=== PATIENT | male | born 1970 | race Caucasian/White ===

== ENCOUNTER → 2017-07-27 | Outpatient (CLI) | payer SELFPAY ==
[2014-01-15 11:50] VITALS: BP 147/75
--- NOTE | 2017-07-31 10:51 | CT ---
HISTORY: Screening exam. Patient reports intermittent tachycardia and chest pressure. Study: Cardiac calcium scoring. Technique: Multiple axial images of the chest were obtained on a [address] from the main pulmonary artery to the base of the heart. Noncontrast evaluation of the heart was performed fo r calcium scoring with prospective gating. Findings: A total coronary artery calcium score of 37 is observed which is between the 50th and 75th percentile for males between the ages of 45 and 49. This score implies definite, at least mild ather osclerotic plaque with mild or minimal coronary narrowings likely. LM: 1 LAD: 5 LCX: 11 RCA: 20 Extracardiac findings: No pathologically enlarged lymphadenopathy can be observed. No significant pericardial effusion can be identified. The visualized portions of the lung parenchyma are unremarkable. No lytic or blastic lesions can be identified within the visualized bony thorax. IMPRESSION: Total coronary artery calcium score of 37. Reported By:
== END ==
LOC: RAD 08:37
PROVIDERS: ATTEND Internal Medicine
DX: Z13.6 Encounter for screening for cardiovascular disorders (principal)

== ENCOUNTER 2018-08-01 16:41 | Observation (INO) ==
[2018-08-01] MEDS ORDERED: NS 1000 ML 1,000 ML IV ONE (16:50)
[2018-08-01] MEDS ORDERED: NS 1000 ML 1,000 ML ONE ×2 (17:22→17:23)
[2018-08-01] MEDS: NS 1000 ML 1,000 ML IV SCH (17:32)
[2018-08-01] MEDS ORDERED: GLUCOPHAGE ONE (17:37)
[2018-08-01] MEDS: GLUCOPHAGE PO SCH (17:41)
[2018-08-01 18:00] LABS: BASOPHILS % (AUTO) 0.8 % (0.2-1.0); EOSINOPHILS # (AUTO) 0.1 x10^3/uL (0.0-0.2); EOSINOPHILS % (AUTO) 1.2 % (0.9-2.9); HEMATOCRIT 44.6 % (42.0-54.0); HEMOGLOBIN 15.5 g/dL (13.5-18.0); LYMPHOCYTES # (AUTO) 2.6 X10^3/uL (1.3-2.9); LYMPHOCYTES % (AUTO) 43.1 % (21.0-51.0); MEAN CORPUSCULAR HEMOGLOBIN 29.6 pg (27.0-34.0); MEAN CORPUSCULAR HGB CONC 34.7 g/dL (33.0-35.0); MEAN CORPUSCULAR VOLUME 85.3 fL (80.0-100.0); MEAN PLATELET VOLUME 8.9 fL (7.4-11.0); MONOCYTES # (AUTO) 0.5 x10^3/uL (0.3-0.8); MONOCYTES % (AUTO) 7.8 % (0.0-13.0); NEUTROPHILS # (AUTO) 2.9 x10^3/uL (2.2-4.8); NEUTROPHILS % (AUTO) 47.1 % (42.0-75.0); PLATELET COUNT 208 X10^3/uL (150.0-450.0); RED BLOOD COUNT 5.22 X10^6/uL (4.7-6.0); RED CELL DISTRIBUTION WIDTH 12.9 % (11.6-16.5); WHITE BLOOD COUNT 6.1 X10^3/uL (3.6-10.0)
[2018-08-01 18:11] LABS: BILIRUBIN,URINE NEGATIVE (NEGATIVE); BLOOD/HEMOGLOBIN,URINE NEGATIVE (NEGATIVE); GLUCOSE, URINE 4+ (NEGATIVE); KETONES,URINE 2+ (NEGATIVE); LEUKOCYTE ESTERASE ,URINE NEGATIVE (NEGATIVE); NITRITES,URINE NEGATIVE (NEGATIVE); PROTEIN,URINE NEGATIVE (NEGATIVE); UROBILINOGEN,URINE NORMAL (NORMAL)
[2018-08-01 18:13] LABS: ALBUMIN 3.5 g/dL (3.4-5.0); ALKALINE PHOSPHATASE 89 Units/L (46-116); AMYLASE 22 Units/L (25-115); BLOOD UREA NITROGEN 13 mg/dL (7-18); CALCIUM 9.2 mg/dL (8.5-10.1); CARBON DIOXIDE 22.5 mmol/L (21-32); CHLORIDE 98 mmol/L (98-107); CREATININE 1.02 mg/dL (0.70-1.30); LIPASE 216 Units/L (73-393); SODIUM 133 mmol/L (136-145); TOTAL PROTEIN 7.2 g/dL (6.4-8.2); eGFR NON BLACK RACES > 60 (>60)
[2018-08-01 18:14] VITALS: BMI 29.6
[2018-08-01 18:15] LABS: APPEARANCE,URINE CLEAR (CLEAR); COLOR,URINE STRAW (YELLOW)
[2018-08-01 18:16] LABS: SERUM ACETONE NEGATIVE (NEGATIVE)
[2018-08-01 18:37] LABS: ALANINE AMINOTRANSFERASE 80 Units/L (12-78); ASPARTATE AMINO TRANSFERASE 24 Units/L (15-37); COR NA(FOR HYPERGLY) 144 mmol/L (136-145)
[2018-08-01] MEDS ORDERED: NORCO 7.5/325 MG TAB PO PRN (18:45)
[2018-08-01] MEDS: HumuLIN R SUBCUT PRN (18:51)
--- NOTE | 2018-08-01 18:51 | DR.H&P ---
H&P - History & Physical for Day of: H&P Date: 08/01/18 - Chief Complaint Chief Complaint: blood sugar >600 - History of Present Illness History of Present Illness: 48 WM DIRECT ADMIT FROM DR TRIANA OFFICE AFTER PRESENTING FOR CO CHEST CONGESTION AND SINUSITIS. PT HAS PMH OF LUMBAR SPINE DDD AND HTN. PT REPORTS HE HAS HAD "WATER CRAVINGS" AND INCREASED URINATION. PT BS IN OFFICE >600 ON GLUCOMETER, UA WITH +KETONES & +1000GLUCOSE. PT ADMITTED FOR NEW ONSET DIABETES AND DEHYDRATION. PT WAS GIVEN ROCEPHIN 1 GM IM IN OFFICE FOR SINUSITIS. - Past Medical History Past Medical History: Arthritis, Hypertension - Past Surgical History Surgical History: Unknown - Family History Family Medical History: Coronary Artery Disease, Hypertension - Social History Does patient currently use any type of tobacco product: No Have you used tobacco products in the last 12 months: No Type of Tobacco Use: None Does any household member use tobacco: No Alcohol Use: None Drug Use: Prescription Drugs - Medications Home Medications: No Known Drug Allergies Allergy (Verified 08/01/18 17:12) CONTINUE taking the following medications lisinopril 10 mg PO BID 08/01/18 [History] simvastatin 20 mg PO HS 08/01/18 [History] - Review of Systems Constitutional: No Symptoms Reported, Other (EXCESSIVE THIRST) Eyes: No Symptoms Reported ENT: No Symptoms Reported Respiratory: Cough, Sputum Cardiovascular: No Symptoms Reported Gastrointestinal: No Symptoms Reported Genitourinary: Frequency Musculoskeletal: Back Pain Skin: No Symptoms Reported Neurological: No Symptoms Reported - Physical Exam Vital Signs: Temperature 99.2 F Pulse Rate [Apical] 86 Respiratory Rate 18 Blood Pressure [Right Arm] 147/75 Blood Pressure [Left Arm] 126/83 Blood Pressure 147/75 O2 Sat by Pulse Oximetry 97 Oriented: Normal Eyes: Normal Ear: Normal Nose: Normal Throat: Exudate Respiratory: RUL Rhonchi, DONNA Rhonchi Cardiovascular: Normal. negative: Edema : Normal Auscultation: Bowel Sounds: Normal Palpation: Normal Tenderness: Normal Skin: Normal Musculoskeletal: Back:Thoracic, Back:Lumbar Psychiatric: Normal Affect: Anxious Speech Pattern: Clear, Appropriate - Assessment/Plan (1) Diabetes mellitus, new onset Status: Acute Plan: ADMIT, BLOOD SUGAR CONTROL. DIABETES EDUCATION. IV HYDRATION, SSI, PO METFORMIN. BP CONTROL, ADMISSION LABS INCLUDING SERUM ACETONE, AMYLASE, LIPASE, UA (2) Hyperglycemia without ketosis Status: Acute (3) Dehydration Status: Acute (4) GERD (gastroesophageal reflux disease) Status: Chronic (5) Lumbago Status: Chronic - Allergies Allergies/Adverse Reactions: Allergies Allergy/AdvReac Type Severity Reaction Status Date / Time No Known Drug Allergies Allergy Verified 08/01/18 17:12
[2018-08-01] MEDS ORDERED: ROBITUSSIN DM ONE (18:53)
[2018-08-01] MEDS: ROBITUSSIN DM PO SCH ×3 (18:54→23:10)
[2018-08-01] MEDS ORDERED: SNACK - Diabetic Appropriate PO SCH (20:00)
[2018-08-02] MEDS: HumuLIN R SUBCUT PRN ×3 (00:40→11:42)
[2018-08-02] MEDS: NS 1000 ML 1,000 ML IV SCH ×2 (02:20→11:09)
[2018-08-02 04:54] LABS: BASOPHILS % (AUTO) 0.5 % (0.2-1.0); EOSINOPHILS # (AUTO) 0.1 x10^3/uL (0.0-0.2); EOSINOPHILS % (AUTO) 2.4 % (0.9-2.9); HEMATOCRIT 40.5 % (42.0-54.0); HEMOGLOBIN 13.9 g/dL (13.5-18.0); LYMPHOCYTES # (AUTO) 2.8 X10^3/uL (1.3-2.9); LYMPHOCYTES % (AUTO) 53.3 % (21.0-51.0); MEAN CORPUSCULAR HEMOGLOBIN 29.2 pg (27.0-34.0); MEAN CORPUSCULAR HGB CONC 34.3 g/dL (33.0-35.0); MEAN CORPUSCULAR VOLUME 85.3 fL (80.0-100.0); MEAN PLATELET VOLUME 9.4 fL (7.4-11.0); MONOCYTES # (AUTO) 0.4 x10^3/uL (0.3-0.8); MONOCYTES % (AUTO) 7.4 % (0.0-13.0); NEUTROPHILS # (AUTO) 1.9 x10^3/uL (2.2-4.8); NEUTROPHILS % (AUTO) 36.4 % (42.0-75.0); PLATELET COUNT 166 X10^3/uL (150.0-450.0); RED BLOOD COUNT 4.76 X10^6/uL (4.7-6.0); WHITE BLOOD COUNT 5.2 X10^3/uL (3.6-10.0)
[2018-08-02 05:07] LABS: ALANINE AMINOTRANSFERASE 59 Units/L (12-78); ALBUMIN 2.8 g/dL (3.4-5.0); ALKALINE PHOSPHATASE 69 Units/L (46-116); ASPARTATE AMINO TRANSFERASE 19 Units/L (15-37); BLOOD UREA NITROGEN 13 mg/dL (7-18); CALCIUM 8.3 mg/dL (8.5-10.1); CARBON DIOXIDE 24.2 mmol/L (21-32); CHLORIDE 106 mmol/L (98-107); COR CA(FOR HYPOALB) 9.3 mg/dL (8.5-10.1); COR NA(FOR HYPERGLY) 143 mmol/L (136-145); CREATININE 0.72 mg/dL (0.70-1.30); SODIUM 140 mmol/L (136-145); eGFR NON BLACK RACES > 60 (>60)
[2018-08-02] MEDS ORDERED: GLUCOPHAGE ONE (05:20)
[2018-08-02] MEDS: GLUCOPHAGE PO SCH (06:55)
[2018-08-02] MEDS ORDERED: POTASSIUM CHL 40 MEQ/NS 0.45% 500 ML IV PRN (07:19)
[2018-08-02] MEDS ORDERED: KLOR-CON PO PRN (07:19)
[2018-08-02] MEDS ORDERED: MICRO K EXTEN CAP 10 MEQ PO PRN (07:19)
[2018-08-02] MEDS ORDERED: POTASSIUM CHL 60 MEQ/NS 0.45% 500 ML IV PRN (07:19)
[2018-08-02] MEDS ORDERED: K-DUR TAB 20 MEQ PO PRN (07:19)
[2018-08-02] MEDS ORDERED: K-RIDER 10 MEQ/NS 100 ML 10 MEQ/100 ML BAG IV PRN (07:19)
[2018-08-02] MEDS ORDERED: POTASSIUM CHLORIDE LIQ 20 MEQ UDC PO PRN (07:19)
[2018-08-02] MEDS: ROBITUSSIN DM PO SCH ×2 (09:09→13:12)
[2018-08-02] MEDS ORDERED: ROCEPHIN VIAL 1 GRAM IVP ONE (09:11)
[2018-08-02] MEDS ORDERED: ROCEPHIN VIAL 1 GRAM ONE (09:37)
[2018-08-02 12:06] VITALS: BP 122/71
[2018-08-02] MEDS ORDERED: SNACK - Diabetic Appropriate PO SCH (20:00)
[2018-08-03] MEDS ORDERED: AMARYL TAB 4 MG PO SCH (07:00)
== END 2018-08-02 14:00 | disposition home or self-care (01) ==
LOC: ICU
PROVIDERS: ADMIT Internal Medicine; ATTEND Internal Medicine
DX: Z79.899 Other long term (current) drug therapy; E11.65 Type 2 diabetes mellitus with hyperglycemia; E86.0 Dehydration; M54.5 Low back pain; K21.9 Gastro-esophageal reflux disease without esophagitis
CPT/HCPCS: 36415; 80053; 81003; 82009; 82150; 83690; 83735; 85025; A4222; G0378; J0696; J1815; J7030